=== PATIENT | male | born 1985 | race African-American/Black ===

== ENCOUNTER 2022-07-16 17:19 | Emergency (ER) | payer SELFPAY ==
[~2022-07-16] VITALS: Ht 177.8 cm; Wt 91.0 kg
[2022-07-16] MEDS ORDERED: ASPIRIN 325MG EC TABLET PO ONE (18:30)
[2022-07-16 18:36] LABS: BASOPHILS % 0.5 % (0.0-2.0); EOSINOPHILS % 2.6 % (0.0-5.0); HEMATOCRIT. 39.6 % (42.0-52.0); HEMOGLOBIN. 13.2 g/dL (14.0-18.0); LYMPHOCYTES % 39.2 % (20.0-50.0); MEAN CORPUSCULAR HEMOGLOBIN 27.5 pg (28.0-32.0); MEAN CORPUSCULAR VOLUME 82.6 fL (80.0-94.0); MEAN PLATELET VOLUME 9.3 fl (7.4-10.4); MONOCYTES % 13.3 % (2.0-8.0); NEUTROPHILS % 44.4 % (40.0-76.0); PLATELET 233 x1000/uL (130-400); RED BLOOD CELL COUNT 4.79 mill/uL (4.7-6.1); RED CELL DISTRIBUTION WIDTH 14.8 % (11.6-14.6)
[2022-07-16 18:45] LABS: CHLORIDE 105 mEq/L (98-107)
[2022-07-16] MEDS ORDERED: PANT40SU MT (21:36)
[2022-07-16] MEDS ORDERED: TOPUD MT (21:36)
[2022-07-16 21:45] VITALS: BP 132/78
== END 2022-07-16 21:50 | disposition home or self-care (01) ==
LOC: ER 17:52
DX: R07.89 Other chest pain (principal)
CPT/HCPCS: 36415; 71045; 80053; 83880; 84484; 85025; 93005; 99285